=== PATIENT | female | born 1960 | race Caucasian/White ===

== ENCOUNTER 2020-10-04 10:48 | Day surgery (SDC) | payer OTHER ==
[~2020-10-04] VITALS: Ht 154.9 cm; Wt 61.7 kg
[~2020-10-04 10:48] MED LIST: ENBREL50 MG/ML SC; FOLIC ACID 11 MG/TA1 PO; METHOTREXA2.5 MG/TAB PO; PRAVACHOL 40MG40 MG PO; PREDNISONE 5MG5 MG PO; PROVENTIL0.09 MG/A1 IH; RT ADVAIR 128 DISKUS IH; RT SPIRIVA18 MCG IH; SINGULAIR 110 MG/TAB PO; VITAMIN D2000 I1 PO; XOPENEX HF0.045 MG/A IH; ZYRTEC 10MG10 MG PO
[2020-10-04 11:58] VITALS: BP 141/77; PULSE 71; TEMP 98.9
[2020-10-04] MEDS ORDERED: 00186-0370-20 IH (12:06)
[2020-10-04] MEDS ORDERED: SPIRIVA RE2.5 MCG/Ac IH (12:07)
[2020-10-04] MEDS ORDERED: LIPITOR20 MG PO (12:07)
[2020-10-04] MEDS ORDERED: TYLENOL 500MG500 MG PO (12:08)
[2020-10-04] MEDS ORDERED: ACTEMRA162 MG/0.9 IV (12:09)
[2020-10-04 14:15] VITALS: BP 107/74; PULSE 77; TEMP 98
--- NOTE | 2020-10-04 14:15 | NUR ---
Patient arrives back to [facility] drowsy, denies pain or nausea. Patient monitor applied, vital stable. Patient given muffin and water.
[2020-10-04 14:30] VITALS: BP 114/71; PULSE 70
[2020-10-04 14:45] VITALS: BP 122/74; PULSE 70
--- NOTE | 2020-10-04 15:00 | NUR ---
Patient tolerated food and drink without any nausea. Denies pain. Vitals stable. Patient resting comfortably, waiting for Dr Hobson to come see her.
--- NOTE | 2020-10-04 15:30 | NUR ---
Dismissal instructions gone over with patient. Patient voices understanding and all questions answered.
--- NOTE | 2020-10-04 15:30 | NUR ---
Dr Hobson into see patient at this time.
--- NOTE | 2020-10-04 15:35 | NUR ---
Patient discharged to private vehilce at patient enterance via wheelchair without any complication. Patient leaves thanking staff for services.
== END 2020-10-04 15:35 | disposition home or self-care (01) ==
LOC: SDCO 10:48
DX: D12.3 Benign neoplasm of transverse colon (principal); K21.00 Gastro-esophageal reflux disease with esophagitis, without bleeding; K44.9 Diaphragmatic hernia without obstruction or gangrene; K29.71 Gastritis, unspecified, with bleeding; K29.80 Duodenitis without bleeding; K57.30 Diverticulosis of large intestine without perforation or abscess without bleeding; K64.0 First degree hemorrhoids; K62.89 Other specified diseases of anus and rectum; K63.3 Ulcer of intestine; J44.9 Chronic obstructive pulmonary disease, unspecified; E78.5 Hyperlipidemia, unspecified; M06.9 Rheumatoid arthritis, unspecified; Z90.710 Acquired absence of both cervix and uterus; E21.3 Hyperparathyroidism, unspecified; Z86.010 Personal history of colon polyps
CPT/HCPCS: J2405; J2704; J3010; J7030